=== PATIENT | female | born 1940 | race Caucasian/White ===

== ENCOUNTER → 2023-08-24 13:29 | Outpatient (REF) | payer OTHER, SELFPAY | LOC: HWRAD 13:29 | PROVIDERS: ATTENDING PHYSICIAN Family Medicine | DX: E04.1 Nontoxic single thyroid nodule (principal); Z78.0 Asymptomatic menopausal state | CPT/HCPCS: 76536; 77080 ==

== ENCOUNTER → 2023-09-21 09:04 | Outpatient (REF) | payer OTHER, SELFPAY | LOC: HWRAD 09:04 | PROVIDERS: ATTENDING PHYSICIAN Internal Medicine Critical Care Medicine; FAMILY PHYSICIAN Family Medicine; REFERRING PHYSICIAN Internal Medicine Cardiovascular Disease | DX: R93.89 Abnormal findings on diagnostic imaging of other specified body structures (principal); J21.9 Acute bronchiolitis, unspecified | CPT/HCPCS: 71250 ==

== ENCOUNTER 2023-10-14 11:36 | Emergency (ER) | payer OTHER, SELFPAY ==
[2023-10-14 11:37] VITALS: BP 148/102
[2023-10-14 11:45] VITALS: BMI 23.5
[2023-10-14 12:01] VITALS: BP 182/79
[2023-10-14 12:16] LABS: % Basophils 0.2 % (0-2); % Eosinophils 0.6 % (0-6); % Immature Granulocytes 0.3 % (0-0.5); % Lymphocytes 13.1 % (20.5-51.1); % Monocytes 8.3 % (1.7-9.3); % Neutrophils 77.5 % (42.2-75.2); Absolute Eosinophils 0.1 10^3/uL (0-0.7); Absolute Lymphocytes 1.4 10^3/uL (1.2-3.4); Absolute Monocytes 0.9 10^3/uL (0.1-0.6); Absolute Neutrophils 8.4 10^3/uL (1.4-6.5); Hematocrit 42.4 % (37.0-47.0); Hemoglobin 14.9 g/dL (12.0-16.0); Mean Corp Hgb Conc. 35.1 g/dL (33.0-37.0); Mean Platelet Volume 9.5 fL (7.4-10.4); Nucleated Red Blood Cells % 0 %; Platelet Count 261 10^3/uL (130-400); Red Blood Cell Count 4.66 10^6/uL (4.20-5.40); White Blood Cell Count 10.8 10^3/uL (4.8-10.8)
[2023-10-14] MEDS: NSS 1000 IV (12:25)
[2023-10-14 12:26] LABS: ALT (SGPT) 20 U/L (0-35); AST (SGOT) 31 U/L (14-36); Albumin 4.7 g/dl (3.5-5.0); Alkaline Phosphatase 107 U/L (38-126); Blood Urea Nitrogen 9 mg/dl (7-17); Calcium 9.9 mg/dl (8.4-10.2); Carbon Dioxide 25 mmol/L (22-30); Chloride 97 mmol/L (98-107); Estimated Creatinine Clearance 52 ml/min; Glucose 109 mg/dl (70-99); Potassium 4.2 mmol/L (3.5-5.1); Sodium 135 mmol/L (135-145); Total Bilirubin 1.5 mg/dl (0.2-1.3); Total Protein 7.8 g/dl (6.3-8.2); eGFR > 60.00
--- NOTE | 2023-10-14 12:33 | ED.GENMED ---
History of Present Illness
General
Chief Complaint: Urinary Symptoms
Source: patient
Exam Limitations: none
Time Seen by Provider: 10/14/23 12:03
Nursing documentation reviewed up to this point in time: agreed with
History of Present Illness
History of Present Illness:
Patient presents to ED secondary to 5-day history of persistent dysuria, urinary frequency, and urgency, along with chills sensation as well as decreased appetite. Denies fever. Denies nausea, vomiting, or diarrhea. Denies headache. Denies
abdominal pain. Denies rash. Denies recent travel. Denies sick contact. Denies recent change in medications or diet. Patient states that she has had history of UTI, with similar symptoms in the past. In fact, patient was treated with
antibiotics 1 month ago when she has similar symptoms, although urinalysis at primary care physician's office did not reveal an infection. However, patient did complete course of antibiotics and felt better.
Past History
Past History
ED Past Medical History: HTN and Hypercholesterolemia
ED Past Surgical History: None
Social History
Tobacco: Former smoker
Alcohol: None
Drug: None
Personal:
Living: with family
Employment: Retired
Review of Systems
Review of Systems
Allergies reviewed?: Yes
All Other Systems: ROS reviewed and negative except as documented in HPI and ROS
Constitutional: Reports chills
Respiratory: Reports no symptoms
Cardiac: Reports no symptoms
ABD/GI: Reports no symptoms; Denies abdominal pain, nausea, vomiting or diarrhea
: Reports dysuria, frequency and urgency
Musculoskeletal: Reports no symptoms
Skin: Reports no symptoms
Neurological: Reports no symptoms
Phy Exam
Physical Exam
Physical Exam:
Physical Exam
General: mild distress, not acutely ill. afebrile.
Head: nc/at. eomi
Neck: supple. no meningeal signs.
Heart: s1/s2 regular rate and rhythm, no murmur. equal radial pulses.
Lungs: no acute respiratory distress. clear bilaterally
Abdomen: normal bowel sounds. not tender.
Neuro: alert and oriented. no focal neurological deficits
Skin: no rash
Psychiatric: well kept. interactive and cooperative
Extremities: no edema. no calf tenderness.
Course
Orders/Labs/Results
Orders:
Orders
10/14/23 11:59
CMP [Comprehensive Metabolic Panel] Urgent
Complete Blood Count/With Diff Urgent
Urinalysis Reflex To Culture Urgent
Date Specimen was Collected: 10/14/23
Time Specimen was Collected: 11:57
Urine Microscopic Reflex Cult Urgent
Urine Culture Urgent
DIANA Source: U
Specimen Description:
Obtained by: Random
Date Specimen was Collected: 10/14/23
Time Specimen was Collected: 11:57
10/14/23 12:14
CT Abd/pelvis W/wo Iv Cont Urgent
Comment:
Reason For Exam: cva tenderness with UTI
0.9% Sodium Chloride 1000 ml [Nss] 1,000 ml IV BOLUS
10/14/23 15:02
CefTRIAXone [Rocephin] 1,000 mg IV NOW STA
Abnormal Lab Results
10/14/23
11:59
MCH 32.0 H pg
(27.0-31.0)
Absolute Neuts (auto) 8.4 H 10^3/uL
(1.4-6.5)
Absolute Monos (auto) 0.9 H 10^3/uL
(0.1-0.6)
Neutrophils % 77.5 H %
(42.2-75.2)
Lymphocytes % 13.1 L %
(20.5-51.1)
Chloride 97 L mmol/L
(98-107)
Glucose 109 H mg/dl
(70-99)
Total Bilirubin 1.5 H mg/dl
(0.2-1.3)
Ur Occult Blood Reflex 2+ A
(Negative)
Leukocyte Esterase Rfl 2+ A
(Negative)
Urine RBC 3-6 A /HPF
(0-2)
Urine Bacteria (Reflex) Few A
(Negative)
10/14/23 11:59
10/14/23 11:59
Vital Signs
Initial and Last Documented VS:
Initial Vital Signs
Temp Pulse Resp BP Pulse Ox
98.1 F 89 16 148/102 98
10/14/23 11:37 10/14/23 11:37 10/14/23 11:37 10/14/23 11:37 10/14/23 11:37
Last Documented Vital Signs
Temp Pulse Resp BP Pulse Ox
98.1 F 89 16 169/75 98
10/14/23 11:37 10/14/23 11:37 10/14/23 11:37 10/14/23 13:00 10/14/23 13:45
MDM/Problems Addressed
MDM/Problems Addressed:
CT abdomen pelvis report reviewed and discussed with patient. History, exam, urinalysis, along with CT scan concerning for likely ascending UTI, with development of pyelonephritis. However, patient remains afebrile, hemodynamically stable, and
nontoxic-appearing during prolonged course of observation ED. As such, after discussion with patient, decision made to discharge patient home with oral antibiotics, i.e. Omnicef. Advised PCP follow-up next week for reevaluation, or return to ED
with worsening symptoms.
*Critical Care Note
Total Time (30-74mins, 75-104mins- exclusive of procedures): Not Applicable
ED Attending Note
-
Portions of this chart may have been created with voice recognition software.� Occasional wrong word or��sound alike� substitutions may have occurred due to the inherent limitations of voice recognition software.
Discharge Plan
Departure
Patient Disposition: Home (Routine Discharge)
Date of Disposition: 10/14/23
Time of Disposition: 15:04
Patient with high blood pressure during this ER visit?: Yes
Condition: Good
Discharge Problem:
Acute UTI
Instructions: Urinary Tract Infection, Adult (DC)
Prescriptions:
New
cefdinir 300 mg capsule
300 mg PO BID Qty: 12 0RF
No Action
diltiazem HCl 240 MG capsule,extended release 24hr
240 mg PO DAILY
aspirin 81 MG tablet,delayed release (DR/EC)
81 mg PO DAILY
montelukast 10 MG tablet
10 mg PO DAILY
ipratropium-albuterol 3 ML solution for nebulization
3 ml inhalation R Q4HPRN PRN (Reason: Wheeze/ SOB) Qty: 1 0RF
atorvastatin 10 MG tablet
20 mg PO DAILY
tiotropium bromide [Spiriva Respimat] 1 PUFF mist
1 puff inhalation DAILY
flaxseed oil 1,000 MG capsule
1,000 mg PO DAILY
triamcinolone acetonide [Nasacort] 10.8 ML aerosol,spray
10.8 ml NS DAILYPRN PRN (Reason: CONGESTION)
magnesium 250 MG tablet
250 mg PO DAILY
clobetasol [Temovate] 15 GM ointment
15 gm TP BID
Patient Comments:
APPLY TO ANUS AND VULVA FOR DRYNESS
losartan [Cozaar] 100 MG tablet
100 mg PO DAILY
vitamin B complex-folic acid [Super B Maxi Complex] 0.4 MG tablet
0.4 mg PO DAILY
vit C,U-Cj-zcuts-lutein-zeaxan [PreserVision AREDS-2] 1 EACH capsule
1 ea PO BID
calcium carbonate-vitamin D3 [Caltrate 600 plus D] 1 EACH tablet,chewable
1 ea PO DAILY
hydrocodone-acetaminophen 1 TABLET tablet
1 tab PO Q4HPRN PRN (Reason: moderate pain) Qty: 10 0RF
Referrals:
Kenny Carpio, DO [Family Provider] -
Activity Restrictions/Additional Instructions:
As discussed, please follow-up with your primary care return for reevaluation next week. Your prescription has been sent electronically to [facility] pharmacy in [place].
Interventions
Interventions:
*Risk Screen - Suicide Last Done: 10/14/23 11:45
*General Assessment Last Done: 10/14/23 11:45
*Neglect/Abuse Screening Last Done: 10/14/23 11:45
ED- Fall Risk Assessment Last Done: 10/14/23 11:45
*ED COVID-19 Vaccine History Last Done: 10/14/23 11:45
*Nursing Disposition Last Done: 10/14/23 15:37
ED-Female Genitourinary Assessment Last Done: 10/14/23 11:45
Discharge Date and Time
Discharge Date/Time: 10/14/23 15:38
Print Language: LATVIAN
[2023-10-14 12:50] LABS: Urine Albumin Trace (Neg - Trace); Urine Bilirubin Negative (Negative); Urine Character Clear (Clear); Urine Color Yellow; Urine Glucose Negative (Negative); Urine Ketone Negative (Negative); Urine Leukocyte 2+ (Negative); Urine Nitrite Negative (Negative); Urine Occult Blood 2+ (Negative); Urine Specific Gravity 1.005 (<1.030); Urine Urobilinogen Negative (Neg - 1+)
[2023-10-14 13:00] VITALS: BP 169/75
[2023-10-14 14:20] LABS: Urine Bacteria Few (Negative)
[2023-10-14] MEDS: ROCEPHIN 1000 MG IV (15:30)
== END 2023-10-14 15:38 | disposition home or self-care (01) ==
LOC: EMR 11:36
PROVIDERS: Emergency Medicine; EMERGENCY PHYSICIAN Emergency Medicine; FAMILY PHYSICIAN Family Medicine
DX: N39.0 Urinary tract infection, site not specified (principal); E78.00 Pure hypercholesterolemia, unspecified; I10 Essential (primary) hypertension; Z87.891 Personal history of nicotine dependence
CPT/HCPCS: 99284; 96374; 96361; 74178; 80053; 81003; 81015; 85025; 87077; 87086; 87186; Q9967

== ENCOUNTER → 2025-01-11 10:36 | Outpatient (REF) | payer OTHER, SELFPAY | LOC: HWRAD 10:36 | PROVIDERS: ATTENDING PHYSICIAN Internal Medicine Critical Care Medicine; FAMILY PHYSICIAN Family Medicine | DX: R93.89 Abnormal findings on diagnostic imaging of other specified body structures (principal) | CPT/HCPCS: 71250 ==